=== PATIENT | male | born 1945 | race Caucasian/White ===

== ENCOUNTER 2016-11-07 10:36 | Outpatient (CLI) | payer OTHER ==
[~2016-11-07 10:36] MED LIST: ADVAIR DISKU1 INH; ALBUTEROL HFA60 DOSE IN; ATORVASTATIN CA40 MG PO; ELIQUIS5 MG PO; METOPROLOL SUCC50 MG PO; PRINIVIL5 MG PO; TORSEMIDE10 MG PO
--- NOTE | 2016-11-07 13:49 | DIAGNOSTIC IMAGING REPORT ---
PROCEDURE: US ART LOWER EXT WITH BRIGETTE-B/L INDICATION: Bilateral calf wounds, diabetic, smoking history TECHNIQUE: Color Doppler duplex imaging of the lower extremity arterial system was performed bilaterally. Pre exercise ABIs were acquired. The patient was unable to exercise. COMPARISON: None. FINDINGS: RIGHT LOWER EXTREMITY: ABIs: Pre exercise posterior tibial: 0.9 Pre exercise dorsalis pedis: 1.0 VESSELS/ WAVEFORMS: Triphasic arterial flow. Moderate subcutaneous calf edema incidentally noted. RIGHT LOWER EXTREMITY PEAK SYSTOLIC VELOCITIES: Common femoral artery: 83 cm/second. Profunda femoral artery: 51 cm/second. Proximal superficial femoral artery: 97 cm/second. Mid superficial femoral artery: 80 cm/second. Distal superficial femoral artery: 61 cm/second. Popliteal artery: 55 cm/second. Proximal posterior tibial artery: 84 cm/second. Proximal anterior tibial artery: 37 cm/second. Peroneal artery: Not well seen Distal posterior tibial artery: 78 cm/second. Dorsalis pedis artery: 47 cm/second. LEFT LOWER EXTREMITY: ABIs: Pre exercise posterior tibial: Weak signal, not obtainable . Pre exercise dorsalis pedis: Noncompressible. VESSELS/ WAVEFORMS: Proximal anterior tibial or peroneal artery is not well seen. There is monophasic flow in the posterior tibial artery at the ankle and biphasic arterial flow in the calf. Proximally, there is triphasic arterial flow. Minor subcutaneous calf edema. LEFT LOWER EXTREMITY PEAK SYSTOLIC VELOCITIES: Common femoral artery: 81 cm/second. Profunda femoral artery: 31 cm/second. Proximal superficial femoral artery: 87 cm/second. Mid superficial femoral artery: 47 cm/second. Distal superficial femoral artery: 84 cm/second. Popliteal artery: 57 cm/second. Proximal posterior tibial artery: 25 cm/second. Proximal anterior tibial artery: Not well seen Peroneal artery: Not seen Distal posterior tibial artery: 15 cm/second. Dorsalis pedis artery: 62 cm/second. IMPRESSION: 1. Mildly decreased arterial flow to the distal left lower extremity with change in wave form in the posterior tibial artery suggestive of atherosclerosis without focal stenosis. 2. Resting ABIs on the left lower extremity were not obtainable due to weeks signal in the posterior tibial and incompressible dorsalis pedis. 3. There is no evidence of arterial insufficiency at rest of the right lower extremity. 4. There is a moderate right calf edema and only minimal left calf edema.
--- NOTE | 2016-11-07 13:53 | DIAGNOSTIC IMAGING REPORT ---
PROCEDURE: US VENOUS - BILATERAL EXT INDICATION: VENOUS DISEASE; WOUND RT CALF; DIABETIC TECHNIQUE: Duplex sonography of the deep and superficial venous system in both lower extremities was performed. Compression and augmentation techniques were used. The patient was scanned in the upright position. Surveillance of the venous system during Valsalva maneuver when appropriate was performed. COMPARISON: None. FINDINGS: Each interrogated segment of the deep vein demonstrates normal compressibility, augmentation, and normal color Doppler flow without filling defect. No thrombus in either greater saphenous or short saphenous vein. There is no venous reflux in the right greater saphenous vein. The vein measures 8.2 mm in maximal diameter in the mid segment. There is no venous reflux in the left greater saphenous vein. The vein measures 5.6 mm in maximal diameter in the proximal segment. There is venous reflux in the right deep system. The venous reflux for a duration of 7.8 seconds was seen in the right proximal superficial femoral vein. No venous reflux in the left deep system. No venous varicosities are seen. IMPRESSION: 1. Venous insufficiency in the right proximal superficial femoral vein. 2. Otherwise normal venous valve closure in deep and superficial system bilaterally. 3. No evidence of DVT.
== END 2016-11-07 23:00 ==
LOC: US SRH 10:36
DX: R60.9 Edema, unspecified (principal); I87.2 Venous insufficiency (chronic) (peripheral)